=== PATIENT | female | born 1985 | race Hispanic/Latino ===

== ENCOUNTER 2021-11-16 21:16 | Emergency (ER) | payer MEDICAID ==
[2021-11-16 21:42] LABS: #Eosinphils 0.2 10x3/uL (0.0-0.5); #Monocytes 0.5 10x3/uL (0.0-1.1); #Neutrophils 2.8 10x3/uL (1.5-8.4); %Basophils 0.6 % (0.0-2.0); %Eosinophils 2.2 % (0.0-6.0); %Lymphocytes 49.6 % (18.0-47.0); %Monocytes 7.8 % (0.0-10.0); %Neutrophils 39.5 % (40.0-75.0); Hemoglobin 12.3 g/dL (12.0-15.5); Mean Corpuscular HGB CONC 34.3 g/dL (32.0-36.0); Mean Corpuscular Hemoglobin 29.3 pg (27.0-33.0); Mean Corpuscular Volume 85.5 fl (81.6-98.3); Mean Platelet Volume 10.2 fl (7.4-10.4); Platelet Count 268 10x3/uL (150-450); RBC Distribution Width 12.3 % (11.5-14.5)
[2021-11-16 21:50] LABS: ALT (SGPT) 23 U/L (8-55); AST (SGOT) 22 U/L (5-34); Albumin 4.3 g/dL (3.5-5.0); Alkaline Phosphatase 93 U/L (40-110); Anion Gap 15 mmol/L (10-20); BUN (Urea Nitrogen) 9 mg/dL (7.0-18.7); Bilirubin, Total 0.2 mg/dL (0.2-1.2); Calc. Creatinine Clearance 0 mL/min (70-130); Calcium 9.6 mg/dL (7.8-10.44); Carbon Dioxide 25 mmol/L (22-29); Chloride 105 mmol/L (98-107); Estimated GFR 115; Globulin 3.1 g/dL (2.4-3.5); Glucose 121 mg/dL (70-105); Potassium 3.8 mmol/L (3.5-5.1); Protein, Total 7.4 g/dL (6.0-8.3); Sodium 141 mmol/L (136-145)
[2021-11-16] MEDS ORDERED: levETIRAcetam in NS 200 ML ONE (21:51)
[2021-11-16] MEDS ORDERED: Lorazepam 2 MG/ML VIAL ONE (22:33)
== END 2021-11-16 23:40 | disposition home or self-care (01) ==
LOC: CSHERS 21:16
DX: G40.909 Epilepsy, unspecified, not intractable, without status epilepticus (principal); R06.4 Hyperventilation; I10 Essential (primary) hypertension; Z79.899 Other long term (current) drug therapy
CPT/HCPCS: 70450; 80053; 85025; 93005; 94760; 96365; 96375; J1953; J2060

== ENCOUNTER 2022-07-03 12:11 | Outpatient (CLI) | payer OTHER | END 2022-07-03 12:12 | disposition home or self-care (01) | LOC: CSHMRI 12:11 | PROVIDERS: ATTEND Psychiatry & Neurology Neurology | DX: G40.409 Other generalized epilepsy and epileptic syndromes, not intractable, without status epilepticus (principal); G93.9 Disorder of brain, unspecified | CPT/HCPCS: 70553 ==